=== PATIENT | female | born 1980 | race Caucasian/White ===

== ENCOUNTER 2022-03-07 16:36 | Emergency (ER) | payer OTHER ==
[~2022-03-07] VITALS: Ht 162.6 cm; Wt 90.7 kg
[2022-03-07] MEDS ORDERED: IV NORMAL SALINE 1000 ML BAG IV ONE (16:45)
--- NOTE | 2022-03-07 16:45 | NUR ---
[facility]INK AT BEDSIDE FOR MSE
[2022-03-07 17:07] LABS: *BILIRUBIN,URIN NEGATIVE (NEGATIVE); *BLOOD, URINE NEGATIVE (NEGATIVE); *CLARITY,URINE CLEAR (CLEAR); *COLOR,URINE LIGHT YELLOW (YELLOW); *KETONES,URINE NEGATIVE (NEGATIVE); *UROBILINOGEN,URINE 0.2 E.U./dl (NORMAL); LEUKOCYTE ESTERASE ,URINE NEGATIVE (NEGATIVE); NITRITE, URINE NEGATIVE (NEGATIVE); UGLUCOSE NEGATIVE (NEGATIVE)
--- NOTE | 2022-03-07 17:08 | NUR ---
PT IS BACK FROM CT
[2022-03-07 17:17] LABS: HEMATOCRIT 39.7 % (31.2-41.9); MEAN CORPUSCULAR HEMOGLOBIN 32.3 uug (24.7-32.8); MEAN CORPUSCULAR VOLUME 94.8 fL (75.5-95.3); PLATELET COUNT (AUTO) 276 K/uL (179-408)
[2022-03-07 17:18] LABS: *AMPHETAMINE, URINE NEGATIVE (NEGATIVE); *CANNABINOID, URINE NEGATIVE (NEGATIVE); *COCCAINE, URINE NEGATIVE (NEGATIVE); *OPIATE, URINE NEGATIVE (NEGATIVE); *PHENCYCLIDINE SCREEN,URINE NEGATIVE (NEGATIVE)
[2022-03-07 17:20] LABS: *URINE HCG, QUAL NEGATIVE (NEGATIVE)
[2022-03-07 17:27] LABS: CARBON DIOXIDE 24 mmol/L (21-32); CHLORIDE 113 mmol/L (98-107); CREATININE 0.9 mg/dL (0.6-1.3); GLUCOSE 92 mg/dL (74-106); POTASSIUM 3.3 mmol/L (3.5-5.1); UREA NITROGEN, BLOOD 10 mg/dL (7-18)
[2022-03-07 17:33] LABS: ALANINE AMINOTRANSFERASE 22 U/L (14-59); ALKALINE PHOSPHATASE 40 U/L (50-136); ASPARTATE AMINOTRANSFERASE 8 U/L (15-37); BILIRUBIN,DIRECT < 0.1 mg/dL (0.0-0.2); BILIRUBIN,TOTAL 0.2 mg/dL (0.2-1.0)
[2022-03-07 17:34] LABS: ACETAMINOPHEN < 2.0 ug/mL (10-30)
[2022-03-07 18:08] LABS: ETHANOL 309 MG/DL (0-0)
--- NOTE | 2022-03-07 18:50 | NUR ---
Pt is agitated and been wanting to go home. Informed pt that she needs to be picked up by a family member before she can go home. made aware. Called jewel supervisor about pt needing 1:1.
[2022-03-07] MEDS ORDERED: HALOPERIDOL LACTATE 5 MG/1 ML VIAL IM ONE (19:00)
--- NOTE | 2022-03-07 19:06 | NUR ---
Endorsed to Kassidy JIMENEZ.
[2022-03-07] MEDS ORDERED: HALOPERIDOL LACTATE 5 MG/1 ML VIAL ONE (19:16)
--- NOTE | 2022-03-07 19:30 | NUR ---
1:1 sitter at bedside
--- NOTE | 2022-03-07 22:17 | NUR ---
Patient is a/ox4, NAD noted, Patient is able to walk with steady gait
--- NOTE | 2022-03-07 23:07 | NUR ---
Patient discharged to home in stable condition with boyfriend taking patient home. Written and verbal after care instructions given. Patient verbalizes understanding of instructions. Stressed follow up or return to ER for worsening s/s.
[2022-03-07 23:08] VITALS: BP 113/71
== END 2022-03-07 23:15 | disposition home or self-care (01) ==
LOC: ER 16:42
DX: G31.2 Degeneration of nervous system due to alcohol (principal); F10.129 Alcohol abuse with intoxication, unspecified; E87.0 Hyperosmolality and hypernatremia
CPT/HCPCS: 80076; 80048; 81003; 84703; 85025; 85730; 36415; 70450; 99285; 96360; 80299; 80320; 80307; J7040; A4663; G0480; J1630